=== PATIENT | female | born 1955 | race Caucasian/White ===

== ENCOUNTER 2018-10-21 08:12 | Day surgery (SDC) | payer OTHER ==
[2018-10-21] MEDS ORDERED: LIDOCAINE 4% SOLUTION 50 ML BTL (09:54)
[2018-10-21] MEDS: INSULIN REGULAR, HUMAN 100 UNIT/1 ML 3ML VIAL SC (10:06)
[2018-10-21] MEDS ORDERED: MIDAZOLAM 1 MG/ML 2 ML INJ (10:58)
[2018-10-21] MEDS ORDERED: FENTAnyl 50 MCG/ML VIAL (10:58)
== END 2018-10-21 14:32 | disposition home or self-care (01) ==
LOC: GIL 08:12
DX: Z12.11 Encounter for screening for malignant neoplasm of colon (principal); K64.4 Residual hemorrhoidal skin tags; K64.8 Other hemorrhoids; K20.9 Esophagitis, unspecified; K29.50 Unspecified chronic gastritis without bleeding; E11.9 Type 2 diabetes mellitus without complications; I10 Essential (primary) hypertension
CPT/HCPCS: 43239; 82962; 88305; 88312